=== PATIENT | female | born 1960 | race Caucasian/White ===

== ENCOUNTER 2024-05-03 23:07 | Inpatient (IN) | payer BC ==
[2024-05-03 23:50] LABS: BASOPHILS PERCENT AUTO 0.2 % (0.0-1.0); EOSINOPHILS PERCENT AUTO 0.6 % (1.0-3.0); HEMATOCRIT 32.5 % (37.0-47.0); HEMOGLOBIN 11.6 g/dL (12.0-16.0); LYMPHOCYTES PERCENT AUTO 25.9 % (20.5-50.1); MEAN CORPUSCULAR HEMOGLOBIN 32.8 pg (27.0-34.0); MEAN CORPUSCULAR HGB CONC 35.7 g/dL (33.0-35.0); MEAN CORPUSCULAR VOLUME 91.8 fL (80-100); NEUTROPHILS PERCENT AUTO 64.3 % (42.2-75.2); PLATELET COUNT,PLT 335 10^3/uL (150-450); RED BLOOD CELL COUNT 3.54 10^6/uL (4.2-5.4); WHITE BLOOD CELL COUNT,WBC 9.9 10^3/uL (5.0-10.0)
[2024-05-04 00:13] LABS: A/G RATIO 1.2; ALBUMIN 3.5 g/dL (3.4-5.0); ANION GAP 10.2 mEq/L (7-13); BILIRUBIN TOTAL 0.4 mg/dL (0.2-1.0); BUN/CREATININE RATIO 21.2 (No establ ref range); CALCIUM 8.7 mg/dL (8.5-10.1); CREATININE 1.04 mg/dL (0.55-1.02); EST CRCL DRUG DOSING (CG) 48.82 mL/min; MAGNESIUM 1.6 mg/dL (1.8-2.4); POTASSIUM,K 3.2 mmol/L (3.5-5.1); PROTEIN TOTAL,TP 6.5 g/dL (6.4-8.2)
[2024-05-04 00:40] LABS: APPEARANCE,URINE CLEAR (CLEAR); BILIRUBIN,URINE NEGATIVE (NEGATIVE); COLOR,URINE YELLOW (YELLOW); GLUCOSE,URINE NEGATIVE (NEGATIVE); KETONES,URINE NEGATIVE (NEGATIVE); LEUKOCYTE ESTERASE,URINE NEGATIVE (NEGATIVE); NITRITE,URINE NEGATIVE (NEGATIVE); OCCULT BLOOD,URINE NEGATIVE (NEGATIVE); PH,URINE 6.5 (5.0-9.0); PROTEIN,URINE NEGATIVE (NEGATIVE); UROBILINOGEN,URINE 0.2 mg/dL (0.2-1.0)
[2024-05-04] MEDS: Magnesium Sulfate/Water 2 GM in Premix Bag 1 BAG IV ONE (00:42)
[2024-05-04] MEDS: Sodium Chloride 0.9% 500 ML IV ONE (00:42)
[2024-05-04] MEDS: Potassium Chloride 10 MEQ Tab.ER PO ONE ×2 (00:53→01:38)
[2024-05-04] MEDS: Sodium Chloride 1 GM Tab PO ONE (01:38)
[2024-05-04 06:01] LABS: HEMATOCRIT 32.8 % (37.0-47.0); HEMOGLOBIN 11.5 g/dL (12.0-16.0); MEAN CORPUSCULAR HEMOGLOBIN 32.4 pg (27.0-34.0); MEAN CORPUSCULAR HGB CONC 35.1 g/dL (33.0-35.0); MEAN CORPUSCULAR VOLUME 92.4 fL (80-100); RED BLOOD CELL COUNT 3.55 10^6/uL (4.2-5.4); WHITE BLOOD CELL COUNT,WBC 8.7 10^3/uL (5.0-10.0)
[2024-05-04 06:13] LABS: ANION GAP 10.5 mEq/L (7-13); CALCIUM 8.8 mg/dL (8.5-10.1); CREATININE 0.99 mg/dL (0.55-1.02); EST CRCL DRUG DOSING (CG) 51.28 mL/min; POTASSIUM,K 4.5 mmol/L (3.5-5.1)
[2024-05-04] MEDS ORDERED: LORazepam 0.5 MG Tab PO PRN (07:49)
[2024-05-04] MEDS ORDERED: ESTRADIOL TRDERM SCH (08:00)
[2024-05-04] MEDS ORDERED: Non-Formulary Medication 1 Each (Cyclosporine [Restasis] 1 EACH Each) EYEBOTH SCH (09:00)
[2024-05-04] MEDS: Hydrochlorothiazide 25 MG Tab PO SCH (09:02)
[2024-05-04] MEDS: Calcium Carbonate/Vitamin D3 1250 MG-5 MCG Tab PO SCH (09:03)
[2024-05-04] MEDS: Montelukast 10 MG Tab PO SCH (09:03)
[2024-05-04] MEDS: Magnesium Oxide 400 MG Tab PO SCH (09:10)
[2024-05-04] MEDS: Lisinopril 10 MG Tab PO SCH (09:10)
[2024-05-04 13:31] LABS: ANION GAP 7.4 mEq/L (7-13); CALCIUM 9.1 mg/dL (8.5-10.1); CREATININE 1.06 mg/dL (0.55-1.02); EST CRCL DRUG DOSING (CG) 47.89 mL/min; POTASSIUM,K 4.4 mmol/L (3.5-5.1)
== END 2024-05-04 14:28 | disposition home or self-care (01) | DRG 426 ==
LOC: DL.ED 23:07 → DL.MS 05-04 00:50
PROVIDERS: ADMIT Student in an Organized Health Care Education/Training Program; ATTEND Student in an Organized Health Care Education/Training Program
DX: E22.2 Syndrome of inappropriate secretion of antidiuretic hormone (principal); N17.9 Acute kidney failure, unspecified; F41.9 Anxiety disorder, unspecified; E78.00 Pure hypercholesterolemia, unspecified; E83.42 Hypomagnesemia; E87.6 Hypokalemia; R63.1 Polydipsia; D64.9 Anemia, unspecified; J45.909 Unspecified asthma, uncomplicated; I10 Essential (primary) hypertension; F32.A Depression, unspecified; Z86.16 Personal history of COVID-19
CPT/HCPCS: 36415; 80048; 80053; 81003; 83735; 83880; 83935; 84300; 84484; 85025; 85027; 85610; 93005; 96374; 99285-25; A9270-GY; J3475; J7040